=== PATIENT | female | born 1950 | race Caucasian/White ===

== ENCOUNTER 2022-09-11 19:19 | Observation (INO) | payer MEDICARE, MEDICAID, SELFPAY ==
[2022-09-11] VITALS (10 sets, daily range): BP systolic 188–229; BP diastolic 96–114; PULSE 78–93; RESP 16–27; TEMP 36.3–36.8; O2SAT 92–97; BMI 30.4; BMI 28.8
--- NOTE | 2022-09-11 19:22 | EKG12_ITS ---
Test Reason : DYSRHYTHMIA Blood Pressure : / mmHG Vent. Rate : 085 BPM Atrial Rate : 085 BPM P-R Int : 162 ms QRS Dur : 082 ms QT Int : 362 ms P-R-T Axes : 031 -03 144 degrees QTc Int : 430 ms Sinus rhythm with occasional Premature ventricular complexes T wave abnormality, consider lateral ischemia Abnormal ECG Confirmed by GREGORY PATEL, EVER ([id number]), purchasing expeditor ANNABELLA WILLOUGHBY ([id number]) on 09/12/2022 10:03:11 AM Referred By: TAMMY Confirmed By:EVER JENKINS MD
--- NOTE | 2022-09-11 19:22 | CT_ITS ---
We are attempting to reach an attending provider to discuss findings. An addendum with communication details will be sent when the communication is complete. STUDY: CT BRAIN WITHOUT CONTRAST REASON FOR EXAM: Female, 71 years old. Neuro deficit, acute, stroke suspected Individualized dose optimization techniques were used for this CT. TECHNIQUE: Transaxial CT imaging of the brain was performed without administration of intravenous contrast material. COMPARISON: 05/13/2015 FINDINGS: There are calcifications around the carotid artery. These are noted in the cavernous carotid arteries. Normal calvarium. Normal soft tissues. Right basal ganglia lacunar infarct. There is mild cerebral atrophy with widening of the extra-axial spaces and ventricular dilatation. There are areas of decreased attenuation within the white matter tracts of the supratentorial brain, consistent with microvascular disease changes. Normal basal ganglia and thalami. Normal brainstem. There is mild cerebellar atrophy. There is no intracranial hemorrhage. There are no findings of an acute ischemic infarction. There is sinus disease. Degenerative changes of the mandibular condyles. ASPECTS Score for Acute Strokes: 11/18 CT/STROKE Brain/Head without Cont IMPRESSION: There are no acute findings. Chronic involutional changes of the brain. Electronically Signed: Jeffy Ceron MD at 19:40 EDT ,
[2022-09-11 19:37] LABS: Absolute Lymphocyte Count 2.41 X10^3/uL (0.83-4.51); Absolute Neutrophil Count 9.2 X10^3/uL (2.0-7.7); Basophil# 0.08 X10^3/uL; Basophil% 0.6 % (0-1); Eosinophil# 0.21 X10^3/uL; Eosinophils% 1.6 % (0-5); Hematocrit 48.8 % (37-47); Hemoglobin 15.7 g/dL (12.0-15.0); Lymphocyte # 2.41 X10^3/ul (0.83-4.51); Lymphocyte % 18.3 % (19-41); Mean Corp Hgb Conc 32.2 g/dL (32-36); Mean Corpuscular Hgb 27.5 pg (27.0-32.0); Mean Corpuscular Volume 85.6 fL (81-99); Mean Platelet Vol. 11.3 fl (6.2-12.0); Monocyte# 1.15 X10^3/uL; Monocyte% 8.7 % (0-10); NRBC Flagged by Analyzer 0 % (0-5); Neutrophil # 9.18 X10^3/uL (2.7-7.7); Neutrophil % 69.8 % (47-70); Platelet Count 240 K/mm3 (150-450); RBC Distribution Width CV 15.1 % (11.6-14.6); RBC Distribution Width SD 46.6 fl (35.1-43.9); White Blood Count 13.2 K/mm3 (4.4-11.0)
--- NOTE | 2022-09-11 19:39 | RAD_ITS ---
STUDY: XR Chest 1 View 09/11/2022 7:45 PM REASON FOR EXAM: Female, 71 years old. Neuro deficit, acute, stroke suspected COMPARISON: 05/13/2015 TECHNIQUE: XR Chest 1 View FINDINGS: There is no demonstrated pleural abnormality. Enlarged heart size. Normal mediastinum. Normal massimo. Prominent appearing increased interstitial lung markings. Normal visualized pulmonary arteries. There is atherosclerotic calcification of the aortic arch with tortuosity. There are diffuse degenerative changes of the visualized thoracic spine. There is degenerative osteoarthritis of the bilateral shoulders. There are no acute findings of the upper abdomen. RAD/Chest 1 View IMPRESSION: There are no acute findings. Electronically Signed: Jeffy Ceron MD at 20:05 EDT ,
--- NOTE | 2022-09-11 19:39 | ED.VIS.STROK ---
HPI History of Present Illness Chief Complaint: Stroke Alert Informant: patient and EMS Onset/Context/Timing Onset: Today Narrative Narrative: Patient presents with slurred speech that started around 1 PM this afternoon. Patient arrives via EMS shortly after 7 PM for evaluation. Patient states she was speaking with her son this morning and he did not notice any problems with her speech. Between 1230 and 1 she was eating lunch. She states as she was eating watermelon her son commented that her speech seemed off. She thought it was just because she was eating. She noted that throughout the afternoon her speech did not improve. Patient does report a history of prior stroke in 2016. At that time she had left-sided weakness and tingling. The symptoms completely resolved and she has no longstanding deficits. Patient does have a history of hypertension. She states that she has previously been on 3 different medicines to control her blood pressure but stopped taking them at the onset of COVID. She does not know when her blood pressure may have been last checked. [facility] Medical History (Updated 09/11/22 @ 21:[address] Dilcia Henry MD) CVA (cerebral vascular accident) Hypertension Home Medications NK 09/11/22 [History Last Taken Unknown] Allergy/AdvReac Type Severity Reaction Status Date / Time shellfish derived Allergy Anaphylaxis Verified 05/13/15 17:34 shrimp Allergy Anaphylaxis Verified 05/13/15 17:34 Social History Smoking Status: Current every day smoker tobacco type: cigarettes ROS ROS ED Constitutional Constitutional ED: Denies chills or fever(s) Eyes Eyes: Denies change in vision or discharge from eye(s) ENT ENT ED: Denies discharge from eye(s), rhinorrhea or sore throat Cardiovascular Cardiovascular: Denies chest pain Respiratory/Chest Respiratory/Chest: Denies cough or dyspnea Gastrointestinal Gastrointestinal: Denies abdominal pain, nausea or vomiting Genitourinary Genitourinary ED: Denies difficulty urinating Musculoskeletal Musculoskeletal: Denies back pain or extremity pain Integumentary Denies Abrasions or rash Neurologic Neurologic: Reports other Details: Slurred speech ; Denies headache(s) or weakness Psychiatric Psychiatric: Denies anxiety or depression Allergic/Immunologic Allergic/Immunologic ED: Denies lip swelling or urticaria EXAM Physical Exam Const Vital Signs: 09/11/22 19:26 09/11/22 19:31 09/11/22 19:38 Temperature 97.6 F L Temperature Source Temporal Pulse Rate 85 86 Respiratory Rate 26 H 27 H Blood Pressure 226/107 H 219/99 H Blood Pressure Mean 146 139 Pulse Ox 95 94 Oxygen Delivery Method Room Air Room Air Room Air 09/11/22 19:52 09/11/22 20:32 Temperature Temperature Source Pulse Rate 88 93 Respiratory Rate 18 24 H Blood Pressure 229/114 H 218/107 H Blood Pressure Mean 152 144 Pulse Ox 96 95 Oxygen Delivery Method Room Air Room Air Positive well nourished and well developed General Appearance ED: well developed HEENT Reports moist mucous membranes Eyes PERRL and EOMs intact bilaterally Neck no lymphadenopathy Chest Wall inspection of chest normal and palpation of chest normal Resp normal respiratory effort and clear to auscultation bilaterally Cardio Rate: regular rate Rhythm: regular rhythm GI normal to inspection, nondistended, normoactive bowel sounds Extremity normal to inspection Neuro oriented x3 Neuro Narrative: See NIH stroke score NIHSS NIHSS Initial: 1a Level of Consciousness: 0 1b LOC Questions (Score 2 if aphasic/stupor): 0 1c LOC Commands (Only score 1st attempt): 0 2 Best Gaze (If aphasic, use reflexive mvmts.): 0 3 Visual: 0 4 Facial Palsy: 0 5 Motor Arm Right (UN = amputation/fusion): 0 5 Motor Arm Left: 0 6 Motor Leg Right: 0 6 Motor Leg Left: 0 7 Limb ataxia (Only + if out of proportion): 0 8 Sensory (Aphasia/stupor=0 or 1, coma=2): 0 9 Best Language: 0 10 Dysarthria (mute, coma=2, intubated=UN): 1 11 Extinction and Inattention (only scored if +): 0 Total Score: 1 MDM MDM MDM Narrative Medical decision making narrative: Patient was a prehospital stroke alert and was met at the EMS doors. Initial eval revealed evidence of slurred speech only with no other focal deficits. Patient sent immediately to CT. It did not appear patient had had any prior lab work in our system since 2015. Labwork obtained to evaluate for leukocytosis, anemia, and electrolyte derangement. Chest x-ray obtained to evaluate for acute lung pathology, cardiac size, or mediastinal abnormality. EKG obtained to evaluate for cardiac arrhythmia/ischemia. When [facility] neurologist, Dr. Bustos, evaluate the patient, I spoke with her via the robot. Patient is outside the window for TNK and is only being scored for slurred speech. She recommended CTA to evaluate for LVO. If this was normal patient can be admitted here for remainder of stroke work-up. History & Record Review Discussion w/independent historian: EMS personnel and Family Lab Data Attestation: I reviewed the patient's lab results. Labs: Laboratory Results - last 24 hr 09/11/22 19:20 WBC 13.2 H RBC 5.70 H Hgb 15.7 H Hct 48.8 H MCV 85.6 MCH 27.5 MCHC 32.2 RDW Std Deviation 46.6 H RDW Coeff of Lucina 15.1 H Plt Count 240 MPV 11.3 Immature Gran % (Auto) 1.000 H Neut % (Auto) 69.8 Lymph % (Auto) 18.3 L Cobb % (Auto) 8.7 Eos % (Auto) 1.6 Baso % (Auto) 0.6 Absolute Neuts (auto) 9.2 H Absolute Lymphs (auto) 2.41 Nucleated RBC % 0 PT 13.4 INR 1.0 APTT 32.3 Sodium 143 Potassium 3.7 Chloride 108 H Carbon Dioxide 29.0 Anion Gap 6 BUN 22 H Creatinine 1.32 H Estim Creat Clear Calc 32.34 Est GFR (MDRD) Af Amer 51 L Est GFR (MDRD) Non-Af 42 L BUN/Creatinine Ratio 16.7 Glucose 125 H Calcium 9.7 Troponin I High Sens 42 Radiography Chest X-Ray - ED: 1 View, Read by ED Physician, Normal, Heart, Lungs and Mediastinum Diagnostic Testing: Clinical Impression(s) from Imaging Studies Brain CT 09/11/22 19:22 IMPRESSION: There are no acute findings. Chronic involutional changes of the brain. Electronically Signed: Jeffy Ceron MD at 19:40 EDT , ADDENDUM: 09/11/221951 IMPRESSION: There are no acute findings. Chronic involutional changes of the brain. N.B. : The above Results were Read Back by Jeffy Ceron MD to Dilcia Henry MD, and understanding confirmed on 09/11/2022 19:45:41 (ET). Electronically Signed: Jeffy Ceron MD at 19:40 EDT , Chest X-Ray 09/11/22 19:39 IMPRESSION: There are no acute findings. Electronically Signed: Jeffy Ceron MD at 20:05 EDT , Head/Neck CTA 09/11/22 20:04 IMPRESSION: 1. There is calcified plaque formation of the right cavernous carotid artery, with a mild stenosis (less than 50%). ALL ABOVE CRITERIA BY NASCET. 2. There is calcified plaque formation of the left cavernous carotid artery, with a mild stenosis (less than 50%). ALL ABOVE CRITERIA BY NASCET. 3. There are no acute findings of the right and left internal carotid artery. ALL ABOVE CRITERIA BY NASCET. Electronically Signed: Jeffy Ceron MD at 20:44 EDT , EKG Initial EKG: Attestation: I personally reviewed and interpreted this EKG as follows: Interpretation: Sinus Rhythm (Sinus at 85 with occasional PVCs. Lateral T wave inversion noted.) Treatment and Re-Evaluation Narrative: CBC was a white count of 13.2 with a hemoglobin of 15.7. Coags are unremarkable. Chemistry studies reveal a BUN of 22 and a creatinine of 1.32. Glucose is 125. Troponin is normal at 42. Chest x-ray per my interpretation reveals chronic changes with no acute findings. Radiology interpretation reviewed and agrees. Noncontrast head CT reveals no evidence of stroke. CTA of the head and neck is later obtained. She has mild vascular disease noted. Patient's blood pressure remained elevated over 220 systolic. She has been given IV labetalol. Current blood pressure is 191/110 and is currently being given a small dose of labetalol at this time. Test results discussed with patient and family at bedside. Patient be discussed with hospitalist for admission and further work-up. Discharge Plan Triage Chief Complaint: Stroke Alert ED Provider: Dilcia Henry Dx/Rx/DC Orders Clinical Impression: Hypertensive emergency, Slurred speech Prescriptions: No Action NK Primary Care Provider: Catrachita Perez Referrals: Catrachita Perez DO [Primary Care Provider] - Disposition Disposition: Acute Care Hospital [facility]
[2022-09-11 19:46] LABS: Prothrombin Time (Protime)PT. 13.4 SECONDS (11.7-14.9)
[2022-09-11 19:47] LABS: Partial Thromboplast Time 32.3 Seconds (24.1-36.2)
[2022-09-11 19:56] LABS: Anion Gap 6 (5-15); BUN 22 mg/dL (7-18); BUN/Creat Ratio 16.7 RATIO (10-20); Calcium,Total 9.7 mg/dL (8.5-10.1); Chloride 108 mmol/L (98-107); Creatinine, Serum 1.32 mg/dL (0.55-1.02); EST Glomerular Filtration Rate 42 mL/min (>60); Est Glom Filt Rate - Afr Amer 51 mL/min (>60); Estimated Creatinine Clearance 32.34 ml/min; Glucose 125 mg/dL (74-106); Potassium 3.7 mmol/L (3.5-5.1); Sodium Level 143 mmol/L (136-145); Troponin-I HS 42 pg/mL (3.0-54.0)
[2022-09-11] MEDS: Labetalol (Prefilled) 20 MG/4 ML 10 MG IV (19:58)
--- NOTE | 2022-09-11 20:04 | CT_ITS ---
EXAM: CT ANGIOGRAPHY HEAD AND NECK WITH INTRAVENOUS CONTRAST CLINICAL INDICATION: slurred speech TECHNIQUE: [place] [facility] [place]/head and neck CT angiography protocol performed with intravenous contrast. This CT exam was performed using one or more of the following dose reduction techniques: automated exposure control, adjustment of the mA and/or kV according to patient size, and/or use of iterative reconstruction technique. MIP reconstructed images were created and reviewed. CONTRAST: IV 100mL Isovue-370 RADIATION DOSE: CTDIvol = 19.67 mGy, DLP = 684.73 mGy-cm COMPARISON: No relevant prior studies available. FINDINGS: HEAD: RIGHT ANTERIOR CEREBRAL ARTERY: Unremarkable. No significant stenosis at the visualized segments. Anterior communicating artery is present. No aneurysm. RIGHT MIDDLE CEREBRAL ARTERY: Unremarkable. No significant stenosis at the visualized segments. No aneurysm. RIGHT POSTERIOR CEREBRAL ARTERY: Unremarkable. No occlusion or significant stenosis. No aneurysm. RIGHT INTRACRANIAL INTERNAL CAROTID ARTERY: Unremarkable. No significant stenosis. No dissection or occlusion. RIGHT INTRACRANIAL VERTEBRAL ARTERY: Unremarkable. No significant stenosis. No dissection or occlusion. LEFT ANTERIOR CEREBRAL ARTERY: Unremarkable. No significant stenosis at the visualized segments. No aneurysm. LEFT MIDDLE CEREBRAL ARTERY: Unremarkable. No significant stenosis at the visualized segments. No aneurysm. LEFT POSTERIOR CEREBRAL ARTERY: Unremarkable. No occlusion or significant stenosis. No aneurysm. LEFT INTRACRANIAL INTERNAL CAROTID ARTERY: Unremarkable. No significant stenosis. No dissection or occlusion. LEFT INTRACRANIAL VERTEBRAL ARTERY: Unremarkable. No significant stenosis. No dissection or occlusion. BASILAR ARTERY: Unremarkable. No significant stenosis. No aneurysm. OTHER VASCULATURE: There is calcified plaque formation of the right cavernous carotid artery, with a mild stenosis (less than 50%). ALL ABOVE CRITERIA BY NASCET. There is calcified plaque formation of the left cavernous carotid artery, with a mild stenosis (less than 50%). ALL ABOVE CRITERIA BY NASCET. There are no acute findings of the right and left internal carotid artery. ALL ABOVE CRITERIA BY NASCET. No vascular malformation. SINUSES: There is sinus disease. NECK: RIGHT COMMON CAROTID ARTERY: Unremarkable. No significant stenosis. No dissection or occlusion. RIGHT EXTRACRANIAL INTERNAL CAROTID ARTERY: Unremarkable. No significant stenosis. No dissection or occlusion. RIGHT EXTERNAL CAROTID ARTERY: Unremarkable. No occlusion. RIGHT EXTRACRANIAL VERTEBRAL ARTERY: Unremarkable. No significant stenosis. No dissection or occlusion. LEFT COMMON CAROTID ARTERY: Unremarkable. No significant stenosis. No dissection or occlusion. LEFT EXTRACRANIAL INTERNAL CAROTID ARTERY: Unremarkable. No significant stenosis. No dissection or occlusion. LEFT EXTERNAL CAROTID ARTERY: Unremarkable. No occlusion. LEFT EXTRACRANIAL VERTEBRAL ARTERY: Unremarkable. No significant stenosis. No dissection or occlusion. BRACHIOCEPHALIC AND SUBCLAVIAN ARTERIES: Unremarkable as visualized. No occlusion or significant stenosis. LUNG APICES: Unremarkable as visualized. HEAD and NECK: BONES/JOINTS: There are degenerative findings of the cervical spine. No discrete lytic or blastic abnormalities. SOFT TISSUES: Unremarkable. OTHER FINDINGS: Post-processing of the angiographic images was performed, with axial imaging and 3D reconstruction. MIPS images were obtained. CAROTID STENOSIS REFERENCE USING NASCET CRITERIA: % ICA stenosis = (1 - narrowest ICA diameter/diameter of distal cervical ICA) x 100. Mild - <50% stenosis. Moderate - 50-69% stenosis. Severe - 70-94% stenosis. Near occlusion - 95-99% stenosis. Occluded - 100% stenosis. CT/CTA Head AND Neck W/ Contrast IMPRESSION: 1. There is calcified plaque formation of the right cavernous carotid artery, with a mild stenosis (less than 50%). ALL ABOVE CRITERIA BY NASCET. 2. There is calcified plaque formation of the left cavernous carotid artery, with a mild stenosis (less than 50%). ALL ABOVE CRITERIA BY NASCET. 3. There are no acute findings of the right and left internal carotid artery. ALL ABOVE CRITERIA BY NASCET. Electronically Signed: Jeffy Ceron MD at 20:44 EDT ,
[2022-09-11] MEDS: Labetalol (Prefilled) 20 MG/4 ML IV (20:58)
--- NOTE | 2022-09-11 21:48 | PCM.HP.STD ---
HPI - General General Date of Admission: 09/11/22 HPI Narrative COLEMAN OWENS, is a 71 F who presents to the hospital dysarthria. This started around 1:30 in the afternoon however she presented outside of the tPA window. CTA of her head and neck in the ER was unremarkable and CT brain was normal. She was significantly hypertensive and she states that she stopped taking her blood pressure medications because she was told that during the pandemic people who are taking medications were at higher risk for poor outcome from COVID. She denies any numbness or tingling in her extremities and no significant peripheral weakness. [facility] Medical History (Updated 09/11/22 @ 21:[address] Dilcia Henry MD) CVA (cerebral vascular accident) Hypertension Home Medications NK 09/11/22 [History Last Taken Unknown] Allergy/AdvReac Type Severity Reaction Status Date / Time shellfish derived Allergy Anaphylaxis Verified 05/13/15 17:34 shrimp Allergy Anaphylaxis Verified 05/13/15 17:34 Family History (Updated 09/12/22 @ 01:[address] Ravin Moncada MD) Other Cancer Heart disease Hypertension no surgical history Social History Smoking Status: Current every day smoker tobacco type: cigarettes ROS Constitutional Constitutional: Denies chills, fatigue, fever(s) or malaise Eyes Eyes: Denies blurry vision ENT HEENT: Denies headache(s) or nasal discharge Cardiovascular Cardiovascular: Denies chest pain, dyspnea on exertion or syncope Respiratory/Chest Respiratory/Chest: Denies cough, shortness of breath at rest or shortness of breath with exertion Gastrointestinal Gastrointestinal: Denies constipation, diarrhea, nausea or vomiting Genitourinary Genitourinary: Denies dysuria Neurologic Neurologic: Reports abnormal speech; Denies focal weakness, numbness or tremor(s) Psychiatric Psychiatric: Denies anxiety or depression Vital Signs Vital Signs Vital Signs: 09/11/22 19:26 09/11/22 19:31 09/11/22 19:38 Temperature 97.6 F L Temperature Source Temporal Pulse Rate 85 86 Respiratory Rate 26 H 27 H Blood Pressure 226/107 H 219/99 H Blood Pressure Mean 146 139 Pulse Ox 95 94 Oxygen Delivery Method Room Air Room Air Room Air 09/11/22 19:52 09/11/22 20:32 09/11/22 21:00 Temperature Temperature Source Pulse Rate 88 93 89 Respiratory Rate 18 24 H 16 Blood Pressure 229/114 H 218/107 H 191/110 H Blood Pressure Mean 152 144 137 Pulse Ox 96 95 95 Oxygen Delivery Method Room Air Room Air Room Air 09/11/22 21:30 09/11/22 21:35 Temperature 97.4 F L Temperature Source Temporal Pulse Rate 86 83 Respiratory Rate 18 22 H Blood Pressure 202/101 H 202/101 H Blood Pressure Mean 134 134 Pulse Ox 93 95 Oxygen Delivery Method Room Air Room Air Weight Weight: 171 lb 11.207 oz Body Mass Index (BMI) 30.4 Physical Exam Narrative General: Alert, Oriented x3, Cooperative, No apparent distress HEENT: Atraumatic, PERRLA, EOMI, Normocephalic Oral: Moist Mucosa Neck: Supple, No JVD Lungs: Clear to auscultation, Normal air movement, No rhonchi, No wheeze, No rales Cardiovascular: Regular rate, Regular Rhythm, Normal S1, Normal S2, No murmurs Abdomen: Soft, Non Tender, Non-Distended, No Hepato-splenomegaly Extremities: No edema, Capillary Refill Less than 3 Seconds Skin: No rashes, No breakdown Musculoskeletal: No Tenderness to Palpation of Joints or Extremities Neurological: Slurred speech, motor exam and sensory exam intact Psych/Mental Status: Normal Affect, Appropriate Results Lab / Micro Data 09/11/22 19:20 09/11/22 19:20 Labs: Laboratory Results - last 24 hr 09/11/22 19:20: WBC 13.2 H, RBC 5.70 H, Hgb 15.7 H, Hct 48.8 H, MCV 85.6, MCH 27.5, MCHC 32.2, RDW Std Deviation 46.6 H, RDW Coeff of Lucina 15.1 H, Plt Count 240, MPV 11.3, Immature Gran % (Auto) 1.000 H, Neut % (Auto) 69.8, Lymph % (Auto) 18.3 L, Angelina % (Auto) 8.7, Eos % (Auto) 1.6, Baso % (Auto) 0.6, Absolute Neuts (auto) 9.2 H, Absolute Lymphs (auto) 2.41, Nucleated RBC % 0, PT 13.4, INR 1.0, APTT 32.3, Sodium 143, Potassium 3.7, Chloride 108 H, Carbon Dioxide 29.0, Anion Gap 6, BUN 22 H, Creatinine 1.32 H, Estim Creat Clear Calc 32.34, Est GFR (MDRD) Af Amer 51 L, Est GFR (MDRD) Non-Af 42 L, BUN/Creatinine Ratio 16.7, Glucose 125 H, Calcium 9.7, Troponin I High Sens [address] 09/11/22 19:22 IMPRESSION: There are no acute findings. Chronic involutional changes of the brain. Electronically Signed: Jeffy Ceron MD at 19:40 EDT , ADDENDUM: 09/11/221951 IMPRESSION: There are no acute findings. Chronic involutional changes of the brain. N.B. : The above Results were Read Back by Jeffy Ceron MD to Dilcia Henry MD, and understanding confirmed on 09/11/2022 19:45:41 (ET). Electronically Signed: Jeffy Ceron MD at 19:40 EDT , Chest X-Ray 09/11/22 19:39 IMPRESSION: There are no acute findings. Electronically Signed: Jeffy Ceron MD at 20:05 EDT , Head/Neck CTA 09/11/22 20:04 IMPRESSION: 1. There is calcified plaque formation of the right cavernous carotid artery, with a mild stenosis (less than 50%). ALL ABOVE CRITERIA BY NASCET. 2. There is calcified plaque formation of the left cavernous carotid artery, with a mild stenosis (less than 50%). ALL ABOVE CRITERIA BY NASCET. 3. There are no acute findings of the right and left internal carotid artery. ALL ABOVE CRITERIA BY NASCET. Electronically Signed: Jeffy Ceron MD at 20:44 EDT , Assessment & Plan Assessment/Plan (1) Slurred speech: (2) Hypertensive urgency: PLAN: Plan 1. Stroke rule out/hypertensive urgency ? Will obtain an MRI as well as an echo in the morning ? Given the significant elevation in her blood pressures we will continue with labetalol and then can restart Norvasc and lisinopril in the morning she does have a slight elevation in her creatinine is hard to tell if this is a new baseline as her last labs were from 2015 ? Continue with NIH as well as aspirin and Lipitor DVT: Ambulation Charges/Coding Visit Charges Inpatient E&M: 89018 Init Hosp L2
--- NOTE | 2022-09-11 22:34 | MRI_ITS ---
We are attempting to reach an attending provider to discuss findings. An addendum with communication details will be sent when the communication is complete. STUDY: MRI BRAIN WITHOUT CONTRAST REASON FOR EXAM: Female, 71 years old. CVA, slurred speech, prev cva 2015 TECHNIQUE: Standardized multiplanar fat and water weighted pulse sequences were obtained. COMPARISON: MRI of the brain dated May 14, 2015. Head CT dated September 11, 2022. FINDINGS: A small acute infarct is present in the left periventricular white matter at the anterior aspect of the left parietal lobe. No additional acute infarcts are present. There is moderate cerebral atrophy with widening of the extra-axial spaces and ventricular dilatation. There are multiple white matter hyperintensities, distributed throughout the deep white matter tracts of the cerebral hemispheres, consistent with moderate chronic white matter ischemic changes. Chronic patchy ischemic changes are present in the bilateral basal ganglia. Normal thalami. There is no extra-axial fluid accumulation. Normal flow voids within the major intracranial circulation suggesting patency by spin echo criteria. Normal sella turcica, pituitary gland, infundibular stalk, optic chiasm and hypothalamus. Normal tectal plate and pineal gland. Normal midbrain, samra and medulla. Normal cerebellum. Normal basal cisterns. Normal bilateral temporal bones. Normal bilateral internal auditory canals. No demonstrated orbital abnormality, within the constraints of a routine brain study. There is mucoperiosteal inflammatory disease of the paranasal sinuses consistent with mild chronic sinusitis. Normal calvarium and skull base. Normal visualized soft tissue structures. Normal visualized upper cervical spine. MRI/Brain without Contrast IMPRESSION: Small acute left periventricular/parietal lobe infarct 1. A small acute infarct is present in the left periventricular white matter at the anterior aspect of the left parietal lobe. No additional acute infarcts are present. Electronically Signed: Alan Mistry MD at 11:04 EDT ,
--- NOTE | 2022-09-11 22:34 | ECHOD_ITS ---
Reason For Study: TIA/CVA Procedure This was a 2D Doppler, Color Flow transthoracic echocardiogram. Exam performed portable in patient room. Left Ventricle Normal LV size. Moderate concentric left ventricular hypertrophy. Left ventricular systolic function is normal. The estimated ejection fraction is 60 %. Stage 1 diastolic dysfunction. No regional wall motion abnormalities noted. Right Ventricle Normal RV size. Normal systolic function. Mitral Valve There is mild mitral annular calcification. Tricuspid Valve Normal tricuspid valve. Aortic Valve Trisinus/trileaflet aortic valve. Mild focal aortic valve calcification. Pulmonic Valve Normal pulmonic valve. Great Vessels Normal aortic root. The pulmonary artery is normal size. Normal inferior vena cava. Pericardium/Pleural No pericardial effusion. MMode/2D Measurements & Calculations LVIDd: 4.5 cm IVSd: 1.4 cm Ao root diam: 2.8 cm LVIDs: 3.1 cm LVPWd: 1.7 cm FS: 30.3 % LAV(MOD-bp): 51.2 ml LVAd ap4: 27.4 cm2 LVAd ap2: 24.6 cm2 LAV(MOD-bp) Indexed: 28.3 ml/m2 LVLd ap4: 7.7 cm LVLd ap2: 8.0 cm LAV(MOD-sp2): 57.9 ml EDV(MOD-sp4): 79.5 ml EDV(MOD-sp2): 63.1 ml LAV(MOD-sp4): 43.9 ml EDV(sp4-el): 83.2 ml EDV(sp2-el): 64.4 ml LVAs ap4: 18.3 cm2 LVAs ap2: 14.2 cm2 LVLs ap4: 6.6 cm LVLs ap2: 6.5 cm ESV(MOD-sp4): 42.7 ml ESV(MOD-sp2): 29.5 ml ESV(sp4-el): 43.3 ml ESV(sp2-el): 26.4 ml EF(MOD-sp4): 46.3 % EF(MOD-sp2): 53.3 % EF(sp4-el): 48.0 % SV(MOD-sp4): 36.8 ml SV(MOD-sp2): 33.7 ml SV(sp4-el): 39.9 ml LA dimension(2D): 4.0 cm LA A4 area: 16.3 cm2 RA A4 area: 14.0 cm2 TAPSE: 2.1 cm Time Measurements MV dec time: 0.20 sec Doppler Measurements & Calculations MV E max juan carlos: 90.3 cm/sec Lat Peak E' Juan Carlos: 5.1 cm/sec Med Peak E' Juan Carlos: 5.6 cm/sec MV A max juan carlos: 97.6 cm/sec E/E' lat: 17.7 E/E' med: 16.2 MV E/A: 0.93 MV V2 max: 112.9 cm/sec MV dec slope: 455.2 cm/sec2 Ao V2 max: 140.2 cm/sec MV max P.1 mmHg Ao max P.9 mmHg MV V2 mean: 76.3 cm/sec Ao V2 mean: 93.1 cm/sec MV mean P.6 mmHg Ao mean P.1 mmHg MV V2 VTI: 34.8 cm Ao V2 VTI: 26.6 cm AV (velocity ratio): 0.72 LV V1 max: 102.2 cm/sec PA V2 max: 95.8 cm/sec LV V1 max P.2 mmHg PA V2 mean: 64.5 cm/sec LV V1 mean P.4 mmHg LV V1 mean: 72.0 cm/sec LV V1 VTI: 19.3 cm ECHO/Echo Complete Interpretation Summary Normal LV size. Moderate concentric left ventricular hypertrophy. Left ventricular systolic function is normal. The estimated ejection fraction is 60 %. Stage 1 diastolic dysfunction. Ordering Physician: Ravin Moncada Referring Physician: MARI PCP Performed By: Henny Dalton RCS
[2022-09-11] MEDS: Atorvastatin Calcium 80 MG Tablet PO (22:47)
[2022-09-12 02:35] VITALS: BP 182/93; PULSE 85; RESP 16; TEMP 37.3; O2SAT 97
[2022-09-12 04:12] VITALS: O2SAT 97
[2022-09-12 06:20] VITALS: BP 185/86; PULSE 78; RESP 18; TEMP 36.5; O2SAT 95
[2022-09-12 06:21] LABS: Absolute Neutrophil Count 8.2 X10^3/uL (2.0-7.7); Basophil# 0.05 X10^3/uL; Basophil% 0.4 % (0-1); Eosinophil# 0.15 X10^3/uL; Eosinophils% 1.3 % (0-5); Hematocrit 45.3 % (37-47); Hemoglobin 14.7 g/dL (12.0-15.0); Lymphocyte % 16.7 % (19-41); Mean Corp Hgb Conc 32.5 g/dL (32-36); Mean Corpuscular Hgb 27.5 pg (27.0-32.0); Mean Corpuscular Volume 84.8 fL (81-99); Mean Platelet Vol. 11.6 fl (6.2-12.0); Monocyte# 1.02 X10^3/uL; NRBC Flagged by Analyzer 0 % (0-5); Neutrophil # 8.18 X10^3/uL (2.7-7.7); Platelet Count 205 K/mm3 (150-450); RBC Distribution Width CV 14.9 % (11.6-14.6); RBC Distribution Width SD 45.7 fl (35.1-43.9); Red Blood Count 5.34 M/mm3 (4.2-5.4); White Blood Count 11.4 K/mm3 (4.4-11.0)
[2022-09-12 07:13] LABS: Anion Gap 7 (5-15); BUN 18 mg/dL (7-18); BUN/Creat Ratio 18.6 RATIO (10-20); Calcium,Total 8.7 mg/dL (8.5-10.1); Chloride 109 mmol/L (98-107); Cholesterol 142 mg/dL (200); Creatinine, Serum 0.97 mg/dL (0.55-1.02); EST Glomerular Filtration Rate 60 mL/min (>60); Est Glom Filt Rate - Afr Amer 73 mL/min (>60); Glucose 145 mg/dL (74-106); High Density Lipoprotein 41 mg/dL; Potassium 3.8 mmol/L (3.5-5.1); Sodium Level 139 mmol/L (136-145); Triglycerides 180 mg/dL; Very Low Density Lipoprotein 36 mg/dL (5-40)
[2022-09-12 08:11] VITALS: BMI 28.8
[2022-09-12 10:20] VITALS: BP 184/88; PULSE 73; RESP 18; TEMP 36.5; O2SAT 97
[2022-09-12] MEDS: Aspirin 81 MG TAB.CHEW PO (10:31)
--- NOTE | 2022-09-12 12:31 | CASEMGMT ---
SW completed a PHQ 9 with patient as she had a Stroke. Patient scored a 4 which indicates minimal depression. Patient denied need for counseling resources. Haydee GABRIEL
--- NOTE | 2022-09-12 14:13 | SP.MBSS_ITS ---
Modified Barium Swallow Patient Information Study Date: 09/12/22 Study Time: 13:30 Direct Billable Minutes: 62 Total Minutes procedure & reportin Diagnosis: Acute Ischemic Stroke I63, HTN I10 Referring Physician: Ravin Moncada Reason for Referral: Objectively assess swallow function, assess risk for aspiration, and determine recommendations for least restrictive diet textures and compensatory strategies to improve safety of swallow. Medical History: Ofelia Jovel is a 71-year-old female with a history of CVA, and hypertension. Patient presented to the [facility] on 09/11/22 with dysarthria. This started around 1:30 in the afternoon on the day of admission, however she presented outside of the tPA window. CTA of her head and neck in the ER was unremarkable and CT brain was normal.? She was significantly hypertensive, and she states that she stopped taking her blood pressure medications because she was told that during the pandemic people who are taking medications were at higher risk for poor outcome from COVID.? She denies any numbness or tingling in her extremities and no significant peripheral weakness. Patient referred for speech therapy evaluation as part of a CVA work up. Patient evaluated by speech therapy on 09/12/22 and recommended for MBSS due to RN and patient concerns for swallowing, and overt s/s of aspiration during bedside swallow evaluation. Current Diet Ordered: Regular Textures/ Thin Liquids Dentition: Missing Teeth Mental Status: WNL Respiratory Status: Oxygenating on Room Air Penetration-Aspiration Scale Penetration-Aspiration Scale: OBJECTIVE ASSESSMENT OF SWALLOW FUNCTION (QUANTITATIVE ? PER TRIAL): PENETRATION / ASPIRATION SCALE (SEN): 1 = does not enter airway 2 = enters airway/above vocal folds/ejected 3 = enters airway/above vocal folds/not ejected 4 = enters airway/contacts vocal folds/ejected 5 = enters airway/contacts vocal folds/not ejected 6 = enters airway/below vocal folds/ejected 7 = enters airway/below vocal folds/not ejected despite effort 8 = enters airway/below vocal folds/no effort VIDEOFLOROSCOPIC SCALE SCORE (SEN): Grade I = aspiration of material that has penetrated into the laryngeal vestibule, intact cough reflex Grade II = aspiration < 10 % of the bolus, intact cough reflex Grade III = aspiration of < 10 % of the bolus, reduced cough reflex or aspiration of > 10 % of the bolus, intact cough reflex Grade IV = aspiration of > 10 % of the bolus, reduced cough reflex Penetration-Aspiration Scale Score Thin Liquid via teaspoon: Result: 7= enters airways/below vocal folds/not ejected despite effort Thin Liquid via teaspoon Trial 2: Result: 1= does not enter airway Thin Liquid via single cup sip: Result: 1= does not enter airway [place] Thick Liquid via single cup sip: Result: 1= does not enter airway Pudding via tsp w/esophageal screen : Result: 1= does not enter airway 1/2 Cookie: Result: 1= does not enter airway Thin Liquid via single straw sip: Result: 1= does not enter airway Thin Liquid via sequential straw sip: Result: 1= does not enter airway Thin Liquid via single cup sip trial 2: Result: 1= does not enter airway Oral Phase Labial Seal: Escape progressing to mid-chin Tongue Control During Bolus Hold: Posterior escape of greater than half of bolus Bolus Preparation/Mastication: Minimal chewing/mashing with majority of bolus unchewed Bolus Transport/Lingual Motion: Slowed tongue motion Oral Residue: Majority of bolus remaining Pharyngeal Phase Initiation of Pharyngeal Swallow: Bolus head in pyriforms Soft Palate Elevation: No bolus between soft palate and pharyngeal wall Laryngeal Elevation: Partial superior movement thyroid cart/partial apprx aryt- epig petiole Anterior Hyoid Excursion: Partial anterior movement Epiglottic Movement: Complete inversion Laryngeal Vestibule Closure at Height of Swallow: Incomplete; narrow column of air/contrast in laryngeal vestibule Pharyngeal Stripping Wave: Present - diminished Pharyngoesophageal Segment Opening: Complete distension and complete duration; no obstruction of flow Tongue Base Retraction: Narrow column of contrast between tongue base & post. pharyngeal wall Pharyngeal Residue: Collection of residue within or on pharyngeal structures Esophageal Phase Esophageal Clearance: Complete clearance Diagnosis/Impression Diagnosis: Mild-Moderate Oropharyngeal Dysphagia (R13.12) Impression: The oral phase is primarily marked by... -Decreased bolus control with >1/2 of the bolus spilling posteriorly to the pyriforms and airway with thin by tsp trial, prior to swallow onset observed with thin liquids especially. -Delayed tongue motion for A-P transport. -Prolonged mastication. SPEECH THERAPY TEACHER manually cleared cookie trial from oral cavity with spoon. Patient reporting it was difficult to masticate cookie due to missing teeth. The pharyngeal phase is primarily marked by... -Mildly decreased airway closure during the swallow due to partial anterior hyoid excursion, and decreased laryngeal elevation. -Moderately decreased tongue base retraction, and decreased pharyngeal stripping wave with resulting mild pharyngeal residues after the swallow, which mostly cleared with independent use of multiple swallows. . -Overt aspiration of thin liquids by tsp prior to swallow onset, which reliably ejected after independent use of cough. The esophageal phase is grossly within normal limits. Recommendations Diet: Thin Liquids Comment: Easy to Chew Textures Compensatory Strategies: Small Bites, Small Sips, Slow Rate, Multiple Swallows and Sitting upright Recommend Repeat Modified Barium Swallow: Yes Need for Skilled Speech Therapy Services: Yes Comment: Will recommend the patient for outpatient dysphagia therapy to address deficits in oropharyngeal swallow function. Will recommend the patient for oropharyngeal strengthening to improve lingual coordination, tongue base retraction, laryngeal elevation, and hyoid excursion (e.g., Lingual Resistance, Salud, CTAR, Mitra, Effortful Swallows). The patient would benefit from thorough education regarding diet recommendations and compensatory strategies. Will recommend patient for frequent oral care, as patient is at increased risk for aspiration, and to repeat study after at least 3-5 weeks of implementation of oropharyngeal exercise program, or if worsening symptoms. Education Completed: 1. Described result of evaluation., 2. Pt understands evaluation & agrees with goals and treatment plan. and 7. Pt requires further education on strategies & risks. Status Active ST Patient: Active Contact Information [facility]:: Omari Castañeda M.A. CF-SPEECH THERAPY TEACHER Speech-Language Pathologist [facility] [address] [place] [address] [email or web address]
[2022-09-12 14:16] VITALS: BP 188/92; PULSE 80; RESP 16; TEMP 36.6; O2SAT 96
--- NOTE | 2022-09-12 15:26 | DCINST_ITS ---
Discharge Instructions Diet Discharge Diet: - (Thin liquids, small bites, small sips, sit upright with hips at 90 degrees while eating) Activity Discharge Activity: Return to Normal Activity Weight Bearing Status: Full weight bearing Follow Up Care Test Results: Test results from this visit will be discussed in further detail at your follow- up appointment, if applicable. Discharge Plan Admission Admit Date/Time: 09/11/22 21:43 Primary Reason for Your Visit: stroke Attending Provider: Sherif Booker Primary Care Provider: Care Physician,No Primary Consulting Providers: Ravin Moncada Instructions Additional Instructions / Restrictions: Take aspirin 81 mg daily, he can be a baby aspirin or coated aspirin Do not take any ibuprofen or Aleve while taking clopidogrel and aspirin Recommend you stop smoking Follow-up with speech therapy as an outpatient Discharge Orders/Prescriptions Prescriptions: New amlodipine 10 mg Tablet 10 mg PO DAILY Qty: 30 0RF lisinopril 10 mg Tablet 10 mg PO DAILY Qty: 30 0RF aspirin 81 mg Tablet,Chewable 81 mg PO BREAKFAST Qty: 0 0RF atorvastatin [Lipitor] 40 mg tablet 40 mg PO DAILY Qty: 30 0RF clopidogrel [Plavix] 75 mg tablet 75 mg PO DAILY Qty: 30 0RF Referrals / Follow Up: Catrachita Perez DO [Med Staff - Active Staff] - Brenda Sandoval [Non-Staff] - See Referral Note (within 3 weeks) Care Physician,No Primary [Primary Care Provider] - Disposition Disposition (needs filled in before D/C Order can be placed): Home, Self Care
--- NOTE | 2022-09-12 15:34 | CASEMGMT ---
JENNIE MACHADO updated that patient will need outpatient speech therapy at discharge. JENNIE CM updated hospitalist and script received. RN CM in to updated patient and provided script and [facility] information to schedule outpatient therapy. Patient voiced understanding. Patient states she has no further questions or concerns at this time. Patient denied additional needs at discharge.
--- NOTE | 2022-09-12 15:39 | DS.PCM_ITS ---
Providers Date of Admission: 09/11/22 Date of Discharge: 09/12/22 Primary Care Physician: Tirsha Primary Care Phys Reason For Visit: CVA R/O Diagnosis Discharge Diagnosis (1) Slurred speech: Status: Acute Code(s): R47.81 - Slurred speech (2) Hypertensive urgency: Status: Acute Code(s): I16.0 - Hypertensive urgency Plan 1 acute ischemic stroke in the left parietal lobe #2 uncontrolled hypertension #3 noncompliance with medical regimen Hypertensive emergency was ruled out Medications at Discharge Home Medications amlodipine 10 mg tablet 10 mg PO DAILY #30 tabs 09/12/22 aspirin 81 mg chewable tablet 81 mg PO BREAKFAST #0 tabs 09/12/22 atorvastatin 40 mg tablet (Lipitor) 40 mg PO DAILY #30 tabs 09/12/22 clopidogrel 75 mg tablet (Plavix) 75 mg PO DAILY #30 tabs 09/12/22 lisinopril 10 mg tablet 10 mg PO DAILY #30 tabs 09/12/22 Hospital Course Operations None Procedures 2-D Echocardiogram Summary of Care Provided Minutes Spent on Discharge: 31 Hospital Course: This 71-year-old white female was seen in the emergency room at [facility] with complaints of slurred speech which started several hours prior to her arrival in the ER. Patient has a history of hypertension and was on several blood pressure medications which she stopped years ago during the COVID outbreak. A stroke alert was called, patient's NIH score was 1, she underwent a CT of the brain as well as a CTA of the head and neck, there were no signs of acute stroke or bleed. Patient's blood pressure was elevated and she was given labetalol in the emergency room, patient was placed in observation status on PCU, she was seen by PT, OT, and speech therapy, she underwent an MRI of the brain which showed evidence of an acute ischemic stroke in the left parietal area. Echocardiogram was not abnormal. She underwent modified barium swallow and her diet was adjusted and it was advised that she follow-up with speech therapy as an outpatient, there was no need for follow-up as far as PT and OT were concerned. On 09/12/2022, patient was seen and examined: On examination she appeared in good health and spirits, she does not appear to be in any distress. Vital signs as documented. Skin warm and dry and without overt rashes. Neck without JVD, thyroid appears normal, trachea is midline, neck is supple. Lungs clear, normal air movement was noted. Heart exam notable for regular rhythm, normal sounds and absence of murmurs, rubs or gallops. Abdomen unremarkable and without evidence of organomegaly, masses, or abdominal aortic enlargement, bowel sounds are present in all 4 quadrants, no abdominal tenderness was noted. Extremities nonedematous, no cyanosis was noted, no clubbing was noted. Neuro: Cranial nerves II through XII are grossly intact, no focal motor deficits were noted, sensation to light touch and pinprick is intact, motor exam 5/5 throughout. Patient has some notable dysarthria. Psych: Patient is alert and oriented x3, she does not appear anxious or depressed, she does not appear agitated. On 09/12/2022, patient appears stable for discharge home, I talked with her at [facility] before her discharge, she told me she was not going to stop smoking even though it was advised that she stop smoking. Patient was also urged to take her blood pressure medications and follow-up with speech therapy as an outpatient. An appointment was made for her to be seen at the [facility] for ongoing care. Weight / BMI Weight Weight: 73.7 kg Body Mass Index (BMI) 28.8 ABG / Lab / Microbiology Data 09/12/22 05:51 09/12/22 05:51 Laboratory: Laboratory Results - last 24 hr 09/11/22 19:20: WBC 13.2 H, RBC 5.70 H, Hgb 15.7 H, Hct 48.8 H, MCV 85.6, MCH 27.5, MCHC 32.2, RDW Std Deviation 46.6 H, RDW Coeff of Lucina 15.1 H, Plt Count 240, MPV 11.3, Immature Gran % (Auto) 1.000 H, Neut % (Auto) 69.8, Lymph % (Auto) 18.3 L, Hinds % (Auto) 8.7, Eos % (Auto) 1.6, Baso % (Auto) 0.6, Absolute Neuts (auto) 9.2 H, Absolute Lymphs (auto) 2.41, Nucleated RBC % 0, PT 13.4, INR 1.0, APTT 32.3, Sodium 143, Potassium 3.7, Chloride 108 H, Carbon Dioxide 29.0, Anion Gap 6, BUN 22 H, Creatinine 1.32 H, Estim Creat Clear Calc 32.34, Est GFR (MDRD) Af Amer 51 L, Est GFR (MDRD) Non-Af 42 L, BUN/Creatinine Ratio 16.7, Glucose 125 H, Calcium 9.7, Troponin I High Sens 42 09/12/22 05:51: WBC 11.4 H, RBC 5.34, Hgb 14.7, Hct 45.3, MCV 84.8, MCH 27.5, MCHC 32.5, RDW Std Deviation 45.7 H, RDW Coeff of Lucina 14.9 H, Plt Count 205, MPV 11.6, Immature Gran % (Auto) 0.600, Neut % (Auto) 72.0 H, Lymph % (Auto) 16.7 L, Hinds % (Auto) 9.0, Eos % (Auto) 1.3, Baso % (Auto) 0.4, Absolute Neuts (auto) 8.2 H, Absolute Lymphs (auto) 1.90, Nucleated RBC % 0, Sodium 139, Potassium 3.8, Chloride 109 H, Carbon Dioxide 23.0, Anion Gap 7, BUN 18, Creatinine 0.97, Estim Creat Clear Calc 44.00, Est GFR (MDRD) Af Amer 73, Est GFR (MDRD) Non-Af 60, BUN/Creatinine Ratio 18.6, Glucose 145 H, Calcium 8.7, Triglycerides 180, Cholesterol 142, LDL Cholesterol 65, VLDL Cholesterol 36, HDL Cholesterol 41 Radiography Diagnostic Testing: Radiology Impression Brain CT 09/11/22 19:22 IMPRESSION: There are no acute findings. Chronic involutional changes of the brain. Electronically Signed: Jeffy Ceron MD at 19:40 EDT Reading Location ID and State: [facility] / [place] , Service support , ADDENDUM: 09/11/221951 IMPRESSION: There are no acute findings. Chronic involutional changes of the brain. N.B. : The above Results were Read Back by Jeffy Ceron MD to Dilcia Henry MD, and understanding confirmed on 09/11/2022 19:45:41 (ET). Electronically Signed: Jeffy Ceron MD at 19:40 EDT , Chest X-Ray 09/11/22 19:39 IMPRESSION: There are no acute findings. Electronically Signed: Jeffy Ceron MD at 20:05 EDT , Head/Neck CTA 09/11/22 20:04 IMPRESSION: 1. There is calcified plaque formation of the right cavernous carotid artery, with a mild stenosis (less than 50%). ALL ABOVE CRITERIA BY NASCET. 2. There is calcified plaque formation of the left cavernous carotid artery, with a mild stenosis (less than 50%). ALL ABOVE CRITERIA BY NASCET. 3. There are no acute findings of the right and left internal carotid artery. ALL ABOVE CRITERIA BY NASCET. Electronically Signed: Jeffy Ceron MD at 20:44 EDT , Brain MRI 09/11/22 22:34 IMPRESSION: Small acute left periventricular/parietal lobe infarct 1. A small acute infarct is present in the left periventricular white matter at the anterior aspect of the left parietal lobe. No additional acute infarcts are present. Electronically Signed: Alan Mistry MD at 11:04 EDT , ADDENDUM: 09/12/22 1124 IMPRESSION: Small acute left periventricular/parietal lobe infarct 1. A small acute infarct is present in the left periventricular white matter at the anterior aspect of the left parietal lobe. No additional acute infarcts are present. N.B. : The above Results were Read Back by Alan Mistry MD to Ana Lucio RN, and understanding confirmed on 09/12/2022 11:17:32 (ET). Electronically Signed: Alan Mistry MD at 11:04 EDT , Echocardiogram 09/11/22 22:34 Interpretation Summary Normal LV size. Moderate concentric left ventricular hypertrophy. Left ventricular systolic function is normal. The estimated ejection fraction is 60 %. Stage 1 diastolic dysfunction. Ordering Physician: Ravin Moncada Referring Physician: TRISHA PCP Performed By: Henny Dalton RCS D/C Instructions Discharge Diet: - (Thin liquids, small bites, small sips, sit upright with hips at 90 degrees while eating) Weight Bearing Status: Full weight bearing Meaningful Use Info Meaningful Use Diagnoses (Choose all that apply): Ischemic CVA CVA Therapy Assessed for PT,OT and/or ST?: Yes Ischemic Stroke Antithrombotic order at d/c?: Yes Dx of Atrial fib/flutter?: No Anticoagulant at discharge?: No Reason anticoagulant not ordered: Treatment not Indicated Statins at discharge?: Yes Primary Dx Acute Ischemic CVA?: Yes IV thrombolytic ordered during stay?: No Reason IV thrombolytic not ordered: Treatment not Indicated Discharge Plan Admission Admit Date/Time: 09/11/22 21:43 Primary Reason for Your Visit: stroke Attending Provider: Sherif Booker Primary Care Provider: Care Physician,No Primary Consulting Providers: Ravin Moncada Instructions Additional Instructions / Restrictions: Take aspirin 81 mg daily, he can be a baby aspirin or coated aspirin Do not take any ibuprofen or Aleve while taking clopidogrel and aspirin Recommend you stop smoking Follow-up with speech therapy as an outpatient Discharge Orders/Prescriptions Prescriptions: New amlodipine 10 mg Tablet 10 mg PO DAILY Qty: 30 0RF lisinopril 10 mg Tablet 10 mg PO DAILY Qty: 30 0RF aspirin 81 mg Tablet,Chewable 81 mg PO BREAKFAST Qty: 0 0RF atorvastatin [Lipitor] 40 mg tablet 40 mg PO DAILY Qty: 30 0RF clopidogrel [Plavix] 75 mg tablet 75 mg PO DAILY Qty: 30 0RF Referrals / Follow Up: Brenda Sandoval [Non-Staff] - See Referral Note (Please call the office to schedule a new patient appt within the next 3 weeks. ) Disposition Disposition (needs filled in before D/C Order can be placed): Home, Self Care Charges/Coding Visit Charges Inpatient E&M: 25680 Disch Hosp >30min
[2022-09-12 15:57] VITALS: BP 190/90; PULSE 81; RESP 17; O2SAT 96
--- NOTE | 2022-09-12 16:09 | NURSING ---
This RN asked patient if she would be able to brick picker her blood pressure medication this evening and start them tonight, as her BP is elevated. Pt stated that she can pick them up on her way home. notified.
[2022-09-12 16:59] VITALS: BMI 28.8
== END 2022-09-12 15:37 | disposition home or self-care (01) ==
LOC: ED 21:14 → PCU 22:04
PROVIDERS: Admitting Provider Family Medicine; Emergency Provider Emergency Medicine; Visit Provider Internal Medicine
DX: R47.81 Slurred speech (principal); I63.233 Cerebral infarction due to unspecified occlusion or stenosis of bilateral carotid arteries; F17.210 Nicotine dependence, cigarettes, uncomplicated; I10 Essential (primary) hypertension; I16.0 Hypertensive urgency; Z91.199 Patient's noncompliance with other medical treatment and regimen due to unspecified reason; I08.0 Rheumatic disorders of both mitral and aortic valves
CPT/HCPCS: 36415; 70450; 70496; 70498; 70551; 71045; 74230; 80048; 80061; 84484; 85025; 85610; 85730; 92523; 92526; 92610; 92611; 93005; 93306; 94762; 96374; 96375; 97162; 97166; 99221; 99285; 99406; Q9967; A4216; G0378

== ENCOUNTER 2023-01-06 11:30 | Outpatient (RCR) | payer MEDICARE, MEDICAID, SELFPAY ==
--- NOTE | 2022-09-17 17:48 | ST ---
[facility] Speech Pathology [address] [place] [address] Modified Barium Swallow Study MR#: [id number] Acct: [id number] Name: OFELIA OWENS Rep #: [id number] : 1950 71 Modified Barium Swallow Patient Information Study Date: 09/12/22 Study Time: 13:30 Direct Billable Minutes: 62 Total Minutes procedure & reportin Diagnosis: Acute Ischemic Stroke I63, HTN I10 Referring Physician: Ravin Moncada Reason for Referral: Objectively assess swallow function, assess risk for aspiration, and determine recommendations for least restrictive diet textures and compensatory strategies to improve safety of swallow. Medical History: Ofelia Owens is a 71-year-old female with a history of CVA, and hypertension. Patient presented to the [facility] on 09/11/22 with dysarthria. This started around 1:30 in the afternoon on the day of admission, however she presented outside of the tPA window. CTA of her head and neck in the ER was unremarkable and CT brain was normal.? She was significantly hypertensive, and she states that she stopped taking her blood pressure medications because she was told that during the pandemic people who are taking medications were at higher risk for poor outcome from COVID.? She denies any numbness or tingling in her extremities and no significant peripheral weakness. Patient referred for speech therapy evaluation as part of a CVA work up. Patient evaluated by speech therapy on 09/12/22 and recommended for MBSS due to RN and patient concerns for swallowing, and overt s/s of aspiration during bedside swallow evaluation. Current Diet Ordered: Regular Textures/ Thin Liquids Dentition: Missing Teeth Mental Status: WNL Respiratory Status: Oxygenating on Room Air Penetration-Aspiration Scale Penetration-Aspiration Scale: OBJECTIVE ASSESSMENT OF SWALLOW FUNCTION (QUANTITATIVE ? PER TRIAL): PENETRATION / ASPIRATION SCALE (SEN): 1 = does not enter airway 2 = enters airway/above vocal folds/ejected 3 = enters airway/above vocal folds/not ejected 4 = enters airway/contacts vocal folds/ejected 5 = enters airway/contacts vocal folds/not ejected 6 = enters airway/below vocal folds/ejected 7 = enters airway/below vocal folds/not ejected despite effort 8 = enters airway/below vocal folds/no effort VIDEOFLOROSCOPIC SCALE SCORE (SEN): Grade I = aspiration of material that has penetrated into the laryngeal vestibule, intact cough reflex Grade II = aspiration < 10 % of the bolus, intact cough reflex Grade III = aspiration of < 10 % of the bolus, reduced cough reflex or aspiration of > 10 % of the bolus, intact cough reflex Grade IV = aspiration of > 10 % of the bolus, reduced cough reflex Penetration-Aspiration Scale Score Thin Liquid via teaspoon: Result: 7= enters airways/below vocal folds/not ejected despite effort Thin Liquid via teaspoon Trial 2: Result: 1= does not enter airway Thin Liquid via single cup sip: Result: 1= does not enter airway [place] Thick Liquid via single cup sip: Result: 1= does not enter airway Pudding via tsp w/esophageal screen : Result: 1= does not enter airway 1/2 Cookie: Result: 1= does not enter airway Thin Liquid via single straw sip: Result: 1= does not enter airway Thin Liquid via sequential straw sip: Result: 1= does not enter airway Thin Liquid via single cup sip trial 2: Result: 1= does not enter airway Oral Phase Labial Seal: Escape progressing to mid-chin Tongue Control During Bolus Hold: Posterior escape of greater than half of bolus Bolus Preparation/Mastication: Minimal chewing/mashing with majority of bolus unchewed Bolus Transport/Lingual Motion: Slowed tongue motion Oral Residue: Majority of bolus remaining Pharyngeal Phase Initiation of Pharyngeal Swallow: Bolus head in pyriforms Soft Palate Elevation: No bolus between soft palate and pharyngeal wall Laryngeal Elevation: Partial superior movement thyroid cart/partial apprx aryt-epig petiole Anterior Hyoid Excursion: Partial anterior movement Epiglottic Movement: Complete inversion Laryngeal Vestibule Closure at Height of Swallow: Incomplete; narrow column of air/contrast in laryngeal vestibule Pharyngeal Stripping Wave: Present - diminished Pharyngoesophageal Segment Opening: Complete distension and complete duration; no obstruction of flow Tongue Base Retraction: Narrow column of contrast between tongue base & post. pharyngeal wall Pharyngeal Residue: Collection of residue within or on pharyngeal structures Esophageal Phase Esophageal Clearance: Complete clearance Diagnosis/Impression Diagnosis: Mild-Moderate Oropharyngeal Dysphagia (R13.12) Impression: The oral phase is primarily marked by... -Decreased bolus control with >1/2 of the bolus spilling posteriorly to the pyriforms and airway with thin by tsp trial, prior to swallow onset observed with thin liquids especially. -Delayed tongue motion for A-P transport. -Prolonged mastication. RECREATIONAL RESORT MANAGER manually cleared cookie trial from oral cavity with spoon. Patient reporting it was difficult to masticate cookie due to missing teeth. The pharyngeal phase is primarily marked by... -Mildly decreased airway closure during the swallow due to partial anterior hyoid excursion, and decreased laryngeal elevation. -Moderately decreased tongue base retraction, and decreased pharyngeal stripping wave with resulting mild pharyngeal residues after the swallow, which mostly cleared with independent use of multiple swallows. . -Overt aspiration of thin liquids by tsp prior to swallow onset, which reliably ejected after independent use of cough. The esophageal phase is grossly within normal limits. Recommendations Diet: Thin Liquids Comment: Easy to Chew Textures Compensatory Strategies: Small Bites, Small Sips, Slow Rate, Multiple Swallows and Sitting upright Recommend Repeat Modified Barium Swallow: Yes Need for Skilled Speech Therapy Services: Yes Comment: Will recommend the patient for outpatient dysphagia therapy to address deficits in oropharyngeal swallow function. Will recommend the patient for oropharyngeal strengthening to improve lingual coordination, tongue base retraction, laryngeal elevation, and hyoid excursion (e.g., Lingual Resistance, Salud, CTAR, Mitra, Effortful Swallows). The patient would benefit from thorough education regarding diet recommendations and compensatory strategies. Will recommend patient for frequent oral care, as patient is at increased risk for aspiration, and to repeat study after at least 3-5 weeks of implementation of oropharyngeal exercise program, or if worsening symptoms. Education Completed: 1. Described result of evaluation., 2. Pt understands evaluation & agrees with goals and treatment plan. and 7. Pt requires further education on strategies & risks. Status Active ST Patient: Active Contact Information [facility] Speech Therapy:: Omari Castañeda M.A. CF-RECREATIONAL RESORT MANAGER Speech-Language Pathologist [facility] [address] [place] [address] [email or web address] 09/12/22 1443 <Electronically signed by Omari Castañeda> Omari Castañeda
--- NOTE | 2022-09-17 18:42 | HP.SP.EV_ITS ---
History History Date of Eval: 09/17/22 Attending Doctor: Reason for Referral: [facility] Medical Diagnosis (from RX): Dysarthria Date of Onset of Diagnosis: 09/11/22 Previous speech therapy: Yes Results: In the hospital for evaluation and MBSS before discharged. Discharge was next day after admit. Other Relevant Medical History/Diagnoses/Surgery: acute ischemic stroke in the left parietal lobe, Patient presented to the [facility] on 09/11/22 with dysarthria. This started around 1:30 in the afternoon on the day of admission, however she presented outside of the tPA window. CTA of her head and neck in the ER was unremarkable and CT brain was normal. She was significantly hypertensive, and she states that she stopped taking her blood pressure medications because she was told that during the pandemic people who are taking medications were at higher risk for poor outcome from COVID. She underwent an MRI of the brain which showed evidence of an acute ischemic stroke in the left parietal area. She denies any numbness or tingling in her extremities and no significant peripheral weakness. Medications related to this diagnosis: amlodipine 10 mg tablet 10 mg PO DAILY #30 tabs 09/12/22 aspirin 81 mg chewable tablet 81 mg PO BREAKFAST #0 tabs 09/12/22 atorvastatin 40 mg tablet (Lipitor) 40 mg PO DAILY #30 tabs 09/12/22 clopidogrel 75 mg tablet (Plavix) 75 mg PO DAILY #30 tabs 09/12/22 lisinopril 10 mg tablet 10 mg PO DAILY #30 tabs 09/12/22 Smoking Status: Heavy Smoker (>10/day) Hx Smoking: Yes Hx Tobacco Use: Yes Pain Is pain an issue with your current prescribed condition?: No Personal Preferred language: Montene[place] Patient Allergies Allergies Allergies: Allergies shellfish derived Allergy (Verified 05/13/15 17:34) Anaphylaxis shrimp Allergy (Verified 05/13/15 17:34) Anaphylaxis * Pediatric & Adult patients Subjective Dysphagia Symptoms Reported Symptoms/Problems with: Coughing Current Diet Solids Current Diet: Soft Current Diet Liquids Current Liquids: Thin Objective Dysphagia Swallowing Impairment Contributing Factors to Swallowing Impairment: Reduced Oral Strength/Coordination/Sensation Impact Impact on Safety & Functioning: Risk for Aspiration Recommendations Modified Barium Swallow/Cookie Swallow Recommended: Yes Swallowing Treatment: Yes Diet Texture Recommendations Solids: Easy to Chew (Level 7) Liquids: Thin (Level 0) Safety Saftey Precautions/Swallowing Recommendations (Check all that Apply): Upright Position at Least 30 Minutes After Meals, Small Sips & Bites when Eating, Sips by Straw Only and Alternate Liquids & Solids Results Swallowing Within Normal Limits: No Swallowing Diagnosis: Oropharyngeal Phase Dysphagia (R13.12) Adult Subjective Oral Motor Subjective Patient Reports: Drooling, Slurred Speech and Difficulty being Understood Facial Drooping: Right Dentures ill fitting: No Objective Oral Motor Oral Status Dentition: Missing Teeth Labial Impairment: Moderate Observation at Rest: Right Droop Closure: Drooling Pucker: Moderate Retraction: Mild Involuntary Movement noted: No Lingual Impairment: Moderate Observation: Deviated Right Protrusion: Mild Retraction: Mild Lateralization: Mild Lingual Comments Comments: Right lateralization is mildly reduced. Jaw Impairment: WNL Respiratory Status Respiratory Status: Room Air Modified Barium Results Hx If Applicable Enter into a NOTE MBS Report Entered: Yes MBS Results (from prior exam): 09/17/22 17:48 Speech Therapy by Jamin Cummins [facility] Speech Pathology [address] [place] [address] Modified Barium Swallow Study MR#: [id number] Acct: [id number] Name: OFELIA OWENS Rep #: [id number] : 1950 71 Modified Barium Swallow Patient Information Study Date: 09/12/22 Study Time: 13:30 Direct Billable Minutes: 62 Total Minutes procedure & reportin Diagnosis: Acute Ischemic Stroke I63, HTN I10 Referring Physician: Ravin Moncada Reason for Referral: Objectively assess swallow function, assess risk for aspiration, and determine recommendations for least restrictive diet textures and compensatory strategies to improve safety of swallow. Medical History: Ofelia Owens is a 71-year-old female with a history of CVA, and hypertension. Patient presented to the [facility] on 09/11/22 with dysarthria. This started around 1:30 in the afternoon on the day of admission, however she presented outside of the tPA window. CTA of her head and neck in the ER was unremarkable and CT brain was normal.? She was significantly hypertensive, and she states that she stopped taking her blood pressure medications because she was told that during the pandemic people who are taking medications were at higher risk for poor outcome from COVID.? She denies any numbness or tingling in her extremities and no significant peripheral weakness. Patient referred for speech therapy evaluation as part of a CVA work up. Patient evaluated by speech therapy on 09/12/22 and recommended for MBSS due to RN and patient concerns for swallowing, and overt s/s of aspiration during bedside swallow evaluation. Current Diet Ordered: Regular Textures/ Thin Liquids Dentition: Missing Teeth Mental Status: WNL Respiratory Status: Oxygenating on Room Air Penetration-Aspiration Scale Penetration-Aspiration Scale: OBJECTIVE ASSESSMENT OF SWALLOW FUNCTION (QUANTITATIVE ? PER TRIAL): PENETRATION / ASPIRATION SCALE (SEN): 1 = does not enter airway 2 = enters airway/above vocal folds/ejected 3 = enters airway/above vocal folds/not ejected 4 = enters airway/contacts vocal folds/ejected 5 = enters airway/contacts vocal folds/not ejected 6 = enters airway/below vocal folds/ejected 7 = enters airway/below vocal folds/not ejected despite effort 8 = enters airway/below vocal folds/no effort VIDEOFLOROSCOPIC SCALE SCORE (SEN): Grade I = aspiration of material that has penetrated into the laryngeal vestibule, intact cough reflex Grade II = aspiration < 10 % of the bolus, intact cough reflex Grade III = aspiration of < 10 % of the bolus, reduced cough reflex or aspiration of > 10 % of the bolus, intact cough reflex Grade IV = aspiration of > 10 % of the bolus, reduced cough reflex Penetration-Aspiration Scale Score Thin Liquid via teaspoon: Result: 7= enters airways/below vocal folds/not ejected despite effort Thin Liquid via teaspoon Trial 2: Result: 1= does not enter airway Thin Liquid via single cup sip: Result: 1= does not enter airway [place] Thick Liquid via single cup sip: Result: 1= does not enter airway Pudding via tsp w/esophageal screen : Result: 1= does not enter airway 1/2 Cookie: Result: 1= does not enter airway Thin Liquid via single straw sip: Result: 1= does not enter airway Thin Liquid via sequential straw sip: Result: 1= does not enter airway Thin Liquid via single cup sip trial 2: Result: 1= does not enter airway Oral Phase Labial Seal: Escape progressing to mid-chin Tongue Control During Bolus Hold: Posterior escape of greater than half of bolus Bolus Preparation/Mastication: Minimal chewing/mashing with majority of bolus unchewed Bolus Transport/Lingual Motion: Slowed tongue motion Oral Residue: Majority of bolus remaining Pharyngeal Phase Initiation of Pharyngeal Swallow: Bolus head in pyriforms Soft Palate Elevation: No bolus between soft palate and pharyngeal wall Laryngeal Elevation: Partial superior movement thyroid cart/partial apprx aryt- epig petiole Anterior Hyoid Excursion: Partial anterior movement Epiglottic Movement: Complete inversion Laryngeal Vestibule Closure at Height of Swallow: Incomplete; narrow column of air/contrast in laryngeal vestibule Pharyngeal Stripping Wave: Present - diminished Pharyngoesophageal Segment Opening: Complete distension and complete duration; no obstruction of flow Tongue Base Retraction: Narrow column of contrast between tongue base & post. pharyngeal wall Pharyngeal Residue: Collection of residue within or on pharyngeal structures Esophageal Phase Esophageal Clearance: Complete clearance Diagnosis/Impression Diagnosis: Mild-Moderate Oropharyngeal Dysphagia (R13.12) Impression: The oral phase is primarily marked by... -Decreased bolus control with >1/2 of the bolus spilling posteriorly to the pyriforms and airway with thin by tsp trial, prior to swallow onset observed with thin liquids especially. -Delayed tongue motion for A-P transport. -Prolonged mastication. BREAKER HAND manually cleared cookie trial from oral cavity with spoon. Patient reporting it was difficult to masticate cookie due to missing teeth. The pharyngeal phase is primarily marked by... -Mildly decreased airway closure during the swallow due to partial anterior hyoid excursion, and decreased laryngeal elevation. -Moderately decreased tongue base retraction, and decreased pharyngeal stripping wave with resulting mild pharyngeal residues after the swallow, which mostly cl eared with independent use of multiple swallows. . -Overt aspiration of thin liquids by tsp prior to swallow onset, which reliably ejected after independent use of cough. The esophageal phase is grossly within normal limits. Recommendations Diet: Thin Liquids Comment: Easy to Chew Textures Compensatory Strategies: Small Bites, Small Sips, Slow Rate, Multiple Swallows and Sitting upright Recommend Repeat Modified Barium Swallow: Yes Need for Skilled Speech Therapy Services: Yes Comment: Will recommend the patient for outpatient dysphagia therapy to address deficits in oropharyngeal swallow function. Will recommend the patient for oropharyngeal strengthening to improve lingual coordination, tongue base retraction, laryngeal elevation, and hyoid excursion (e.g., Lingual Resistance, Salud, CTAR, Mitra, Effortful Swallows). The patient would benefit from thorough education regarding diet recommendations and compensatory strategies. Will recommend patient for frequent oral care, as patient is at increased risk for aspiration, and to repeat study after at least 3-5 weeks of implementation of oropharyngeal exercise program, or if worsening symptoms. Education Completed: 1. Described result of evaluation., 2. Pt understands evaluation & agrees with goals and treatment plan. and 7. Pt requires further education on strategies & risks. Status Active ST Patient: Active Contact Information [facility] Speech Therapy:: Omari Castañeda M.A. CF-BREAKER HAND Speech-Language Pathologist [place] [address] [place] [address] [email or web address] 09/12/22 1443 <Electronically signed by Omari Castañeda> Omari Castañeda Electronically signed by Jamin Cummins M.A., [facility]-BREAKER HAND on 09/17/22 17:49 Initialized on 09/17/22 17:48 - END OF NOTE Subjective Dysarthria/Motor Subjective Subjective: Patient reports drooling on left side and slurred speech. Objective Dysarthira/Motor Speech Intelligibility Single Words: Mild Phrases: Moderate Sentences: Moderate Conversation: Moderate Volume Volume: Mild Sounds Sounds in Error: bilabials, labiodentals, interdental sounds. Consistency w/Multiple Repetitions Words: WFL Observation Observation of Apraxia of Speech: No Oral Groping for Placement: No Awareness/Strategy Use Uses strategies intermittently to improve intelligibility or listener's understanding of message: Yes N-BRIDGETT [place] Dysarthria Assessment Tool Intelligibility:: Intelligible w/some difficulty Phonation: Phonation: Soft Pitch: Adequate Quality: Adequate Resonance: Resonance: Nasality: Adequate Prosody: Prosody: Ability to vary: Yes Articulation: Rate of speech: Slow Phrase length: Short Reference: Neuro-QoL instrument HDQLIFE - Speech Difficulties In the past 7 days. It was difficult for other people to understand me.: Sometimes Is was difficult to speak clearly?: Often In the past 7 days.. How often did you limit your social activites because you had difficulty sp eaking?: Always In the past 7 days... I had trouble speaking.: Somewhat I was frustrated by my speech difficulties.: Very much How much DIFFICULTY do you have... ...saying what you want to say?: No difficulty Score HDQLIFE Speech Difficulties Raw Score: 21 HDQLIFE Speech Difficulties T - Score: 61 Radiation Oncology Patient Plan Plan Plan: Patient exhibits moderate dysarthria and Mild-Moderate Oropharyngeal Dysphagia. REcommend one time per week for 12 weeks to focus on exercises, strategies and increasing communication. Recommendations MBS: Yes Treatment Warranted: Yes Treatment Warranted: Dysphagia and Other: Comment: Dysarthria Progress Prognosis: Good Frequency Frequency: 1x/Week Duration: 6 Weeks Patient/Family Goal Patient/Family Goal: Patient wishes to stop drooling. Goals that are Established Determination:: Goals will be added/modified as deemed necessary and appropriate. Therapy will be discontinued when results of re-evaluation indicate therapy is no longer needed or lack of progress has been documented. Goal #1-5 Goal #1: The Patient will independently demonstrate and utilize recommended compensatory articulation techniques (increased vocal intensity, reduced rate of speech) to facilitate increased expressive communication abilities in the home and social environments. Goal #2: The Patient will demonstrate and utilize recommended oral and oropharyngeal strengthening exercises to facilitate improved oral and oropharyngeal strength and coordination with minimal cueing and prompting provide by the clinician, across 3 to 3 sessions. Goal #3: The Patient will demonstrate and utilize recommended compensatory swallowing techniques to facilitate improved airway protection and decreased risk for aspiration during PO intake, across 3 out of 3 sessions. Goal #4: Patient will produce multisyllabic words with minimal errors on 4/5 trials on 3/4 consecutive sessions. Education Patient has Indicated that the Following Identified Educational Needs: None The Patient has indicated that they have no educational or learning abilities that may effect their care.: Yes Patient Instruction Patient Education: Diagnosis, Treatment Plan, Goals, Diet Level and Home Exercise Program Person Taught: Patient and Family Response to teaching: Verbalize understanding
--- NOTE | 2022-12-02 11:20 | HP.SPREEV_ITS ---
History History Date of Eval: 09/17/22 Attending Doctor: AFSHIN Referring Doctor: Reason for Referral: [facility] Medical Diagnosis (from RX): Dysarthria Date of Onset of Diagnosis: 09/11/22 Previous speech therapy: Yes Results: In the hospital for evaluation and MBSS before discharged. Discharge was next day after admit. Other Relevant Medical History/Diagnoses/Surgery: acute ischemic stroke in the left parietal lobe, Patient presented to the [facility] on 09/11/22 with dysarthria. This started around 1:30 in the afternoon on the day of admission, however she presented outside of the tPA window. CTA of her head and neck in the ER was unremarkable and CT brain was normal. She was significantly hypertensive, and she states that she stopped taking her blood pressure medications because she was told that during the pandemic people who are taking medications were at higher risk for poor outcome from COVID. She underwent an MRI of the brain which showed evidence of an acute ischemic stroke in the left parietal area. She denies any numbness or tingling in her extremities and no significant peripheral weakness. Medications related to this diagnosis: amlodipine 10 mg tablet 10 mg PO DAILY #30 tabs 09/12/22 aspirin 81 mg chewable tablet 81 mg PO BREAKFAST #0 tabs 09/12/22 atorvastatin 40 mg tablet (Lipitor) 40 mg PO DAILY #30 tabs 09/12/22 clopidogrel 75 mg tablet (Plavix) 75 mg PO DAILY #30 tabs 09/12/22 lisinopril 10 mg tablet 10 mg PO DAILY #30 tabs 09/12/22 Smoking Status: Heavy Smoker (>10/day) Hx Smoking: Yes Hx Tobacco Use: Yes Pain Is pain an issue with your current prescribed condition?: No Personal Preferred language: [place] Patient Allergies Allergies Allergies: Allergies shellfish derived Allergy (Verified 05/13/15 17:34) Anaphylaxis shrimp Allergy (Verified 05/13/15 17:34) Anaphylaxis Previous/Current Goals Goals 1-5 Previous Goal #1: The Patient will independently demonstrate and utilize recommended compensatory articulation techniques (increased vocal intensity, reduced rate of speech) to facilitate increased expressive communication abilities in the home and social environments. Goal 1 Status: Patient can independently use these strategies to be understood. Goal met. Previous Goal #2: The Patient will demonstrate and utilize recommended oral and oropharyngeal strengthening exercises to facilitate improved oral and oropharyngeal strength and coordination with minimal cueing and prompting provide by the clinician, across 3 to 3 sessions. Goal 2 Status: Patient can independently complete these exercises. Goal met. Previous Goal #3: The Patient will demonstrate and utilize recommended compensatory swallowing techniques to facilitate improved airway protection and decreased risk for aspiration during PO intake, across 3 out of 3 sessions. Goal 3 Status: Patient has demonstrated the ability to use swallow strategies. She reported that as long as she takes smaller drinks she has no deficits in swallowing. Goal met. Previous Goal #4: Patient will produce multisyllabic words with minimal errors on 4/5 trials on 3/4 consecutive sessions. Goal 4 Status: Patient can produce multisyllabic words using a slow rate as long as the words do not contain /f,v/ and at times /s/. Goal met. Subjective Dysphagia Symptoms Reported Symptoms/Problems with: Coughing Current Diet Solids Current Diet: Soft Current Diet Liquids Current Liquids: Thin Objective Dysphagia Swallowing Impairment Contributing Factors to Swallowing Impairment: Reduced Oral Strength/Coordination/Sensation Impact Impact on Safety & Functioning: Risk for Aspiration Recommendations Modified Barium Swallow/Cookie Swallow Recommended: Yes Swallowing Treatment: Yes Diet Texture Recommendations Solids: Easy to Chew (Level 7) Liquids: Thin (Level 0) Safety Saftey Precautions/Swallowing Recommendations (Check all that Apply): Upright Position at Least 30 Minutes After Meals, Small Sips & Bites when Eating, Sips by Straw Only and Alternate Liquids & Solids Results Swallowing Within Normal Limits: No Swallowing Diagnosis: Oropharyngeal Phase Dysphagia (R13.12) Subjective Oral Motor Subjective Patient Reports: Drooling, Slurred Speech and Difficulty being Understood Facial Drooping: Right Dentures ill fitting: No Objective Oral Motor Oral Status Dentition: Missing Teeth Labial Impairment: Moderate Observation at Rest: Right Droop Closure: Drooling Pucker: Moderate Retraction: Mild Involuntary Movement noted: No Lingual Impairment: Moderate Observation: Deviated Right Protrusion: Mild Retraction: Mild Lateralization: Mild Lingual Comments Comments: Right lateralization is mildly reduced. Jaw Impairment: WNL Respiratory Status Respiratory Status: Room Air Subjective Dysarthria/Motor Subjective Subjective: Patient reports drooling on left side and slurred speech. Objective Dysarthira/Motor Speech Intelligibility Phrases: Mild Sentences: Mild Conversation: Mild Volume Volume: WNL Sounds Sounds in Error: Noted errors in conversation for /f,v,s/. /s/ is a high frequency sound that occasionally impacts her ability to be understood in certain words. Consistency w/Multiple Repetitions Words: WFL Phrases: WFL Observation Observation of Apraxia of Speech: No Oral Groping for Placement: No Inconsistent Errors: No Awareness/Strategy Use Uses strategies effectively and consistently to improve intelligibility or listener's understanding of message: Yes N-BRIDGETT [place] Dysarthria Assessment Tool Intelligibility:: Intelligible Phonation: Phonation: Adequate Pitch: Adequate Quality: Adequate Resonance: Resonance: Nasality: Adequate Prosody: Prosody: Ability to vary: Yes Articulation: Rate of speech: Adequate Phrase length: Adequate Reference: Neuro-QoL instrument HDQLIFE - Speech Difficulties In the past 7 days. It was difficult for other people to understand me.: Sometimes Is was difficult to speak clearly?: Often In the past 7 days.. How often did you limit your social activites because you had difficulty speaking?: Always In the past 7 days... I had trouble speaking.: Somewhat I was frustrated by my speech difficulties.: Very much How much DIFFICULTY do you have... ...saying what you want to say?: No difficulty Score HDQLIFE Speech Difficulties Raw Score: 21 HDQLIFE Speech Difficulties T - Score: 61 Radiation Oncology Patient Plan Plan Plan: Speech therapy is warranted to continue as the patient's speech is not at baseline following her CVA. Recommendations MBS: Yes Treatment Warranted: Yes Treatment Warranted: Speech Sound Production Comment: Dysarthria Progress Prognosis: Good Frequency Frequency: 1x/Week Duration: 2 Months Visits in this POC: 8 Patient/Family Goal Patient/Family Goal: The patient wishes for her speech to be clear as it was previously Goals that are Established Determination:: Goals will be added/modified as deemed necessary and appropriate. Therapy will be discontinued when results of re-evaluation indicate therapy is no longer needed or lack of progress has been documented. Goal #1-5 Goal #1: Ofelia will produce /s/ in sentences and conversation with 90% accuracy with no cues. Goal #2: Ofelia will produce /f,v/ in sentences and conversation with 90% accuracy with no cues. Education Patient has Indicated that the Following Identified Educational Needs: None The Patient has indicated that they have no educational or learning abilities that may effect their care.: Yes Patient Instruction Patient Education: Diagnosis, Treatment Plan, Goals, Diet Level and Home Exercise Program Person Taught: Patient and Family Response to teaching: Verbalize understanding
--- NOTE | 2023-01-20 11:20 | HP.SP.DC ---
ST Discharge Summary Discharged: Discharge: Ofelia Jovel was discharged from speech therapy at [facility] as of 01/06/23 as she had met her goals, and her communication was independent. She was evaluated on 09/17/22 following her CVA for dysarthria and dysphagia. She demonstrated independent ability to self-monitor her speech and use compensatory strategies as needed as well as complete oropharyngeal strengthening exercises. Her speech was clear and able to be understood 100% by this therapist and reported by the patient for all her communication partners. She was able to produce multisyllabic words using a slightly slower rate of speech without errors. She was also able to produce all phonemes appropriately. She was in agreement with discharge as all goals were met. Thank you for allowing me to participate in the care of this patient.
== END 2023-01-06 19:00 | disposition home or self-care (01) ==
LOC: SP 11:30
PROVIDERS: PCP Nurse Practitioner Primary Care; Referring Provider Internal Medicine; Visit Provider Nurse Practitioner Primary Care
DX: R47.81 Slurred speech (principal); I63.9 Cerebral infarction, unspecified
CPT/HCPCS: 92507; 92522; 92610

== ENCOUNTER → 2023-03-20 | Outpatient (CLI) | payer MEDICARE, MEDICAID, SELFPAY ==
[2023-03-20 10:07] LABS: Hematocrit 48.1 % (37-47); Hemoglobin 14.9 g/dL (12.0-15.0); Mean Corpuscular Hgb 27.2 pg (27.0-32.0); Mean Corpuscular Volume 87.8 fL (81-99); Mean Platelet Vol. 11.5 fl (6.2-12.0); Platelet Count 282 K/mm3 (150-450); RBC Distribution Width CV 14.8 % (11.6-14.6); RBC Distribution Width SD 47.7 fl (35.1-43.9); Red Blood Count 5.48 M/mm3 (4.2-5.4); White Blood Count 10.4 K/mm3 (4.4-11.0)
[2023-03-20 10:44] LABS: Vitamin B12 492 pg/mL (211-911)
[2023-03-20 10:51] LABS: ALB/GLOB Ratio 0.9 RATIO (0.9-2.4); AST(SGOT) 11 U/L (15-37); Alanine Aminotransfer ALT/SGPT 25 U/L (13-56); Albumin, Serum 3.6 g/dL (3.2-5.0); Alkaline Phosphatase 99 U/L (45-117); Anion Gap 7 (5-15); BUN 27 mg/dL (7-18); BUN/Creat Ratio 29.2 RATIO (10-20); Calcium,Total 9.5 mg/dL (8.5-10.1); Chloride 107 mmol/L (98-107); Creatinine, Serum 0.93 mg/dL (0.55-1.02); EST Glomerular Filtration Rate 63 mL/min (>60); Est Glom Filt Rate - Afr Amer 77 mL/min (>60); Globulin 4.1 g/dL (2.2-4.2); Glucose 171 mg/dL (74-106); Potassium 4.1 mmol/L (3.5-5.1); Protein, Total 7.7 g/dL (6.4-8.2); Sodium Level 140 mmol/L (136-145); Thyroid Stim Hormone (TSH) 1.39 uIU/mL (0.358-3.74)
[2023-03-23 11:08] LABS: Vitamin D 1,25-Dihydroxy 44.4 pg/mL (24.8-81.5)
== END | disposition home or self-care (01) ==
PROVIDERS: PCP Nurse Practitioner Family; Referring Provider Nurse Practitioner Family; Visit Provider Nurse Practitioner Family
DX: R54 Age-related physical debility (principal); I10 Essential (primary) hypertension
CPT/HCPCS: 36415; 80053; 82607; 82652; 84443; 85027